=== PATIENT | female | born 1985 | race African-American/Black ===

== ENCOUNTER 2017-11-19 23:31 | Inpatient (IN) | payer MEDICARE, MEDICAID ==
[2017-11-20 01:52] LABS: HEMATOCRIT 36.8 % (36.0-47.0); HEMOGLOBIN 11.6 g/dl (12.0-16.0); MEAN CORPUSCULAR HGB CONC 31.5 g/dl (32.0-36.5); MEAN CORPUSCULAR VOLUME 79.3 fl (80.0-96.0); PLATELET COUNT, AUTOMATED 360 10^3/uL (150-450); RED BLOOD COUNT 4.64 10^6/uL (4.00-5.40); RED CELL DISTRIBUTION WIDTH 15.3 % (11.5-14.5); WHITE BLOOD COUNT 13.7 10^3/uL (4.0-10.0)
[2017-11-20 02:16] LABS: CONTROL LINE HCG INT CTR LINE PRESENT; HCG, SERUM QUALITATIVE NEGATIVE (NEGATIVE)
[2017-11-20 02:28] LABS: ALBUMIN 3.6 GM/DL (3.2-5.2); ALBUMIN/GLOBULIN RATIO 0.86 (1.00-1.93); ALKALINE PHOSPHATASE 82 U/L (45-117); ALT/SGPT 20 U/L (12-78); AMPHETAMINES LEVEL URINE NEGATIVE (NEGATIVE); ANION GAP 10 MEQ/L (8-16); AST/SGOT 16 U/L (7-37); BARBITURATES URINE NEGATIVE (NEGATIVE); BENZODIAZEPINES URINE NEGATIVE (NEGATIVE); BILIRUBIN,DIRECT 0.2 MG/DL (0.0-0.2); BILIRUBIN,TOTAL 0.4 MG/DL (0.2-1.0); BLOOD UREA NITROGEN 8 MG/DL (7-18); CALCIUM LEVEL 8.6 MG/DL (8.5-10.1); CANNABINOIDS URINE NEGATIVE (NEGATIVE); CARBON DIOXIDE LEVEL 25 MEQ/L (21-32); CHLORIDE LEVEL 105 MEQ/L (98-107); COCAINE METABOLITE URINE NEGATIVE (NEGATIVE); CPK CREATINE PHOSPHOKINASE 181 U/L (26-192); CREATININE FOR GFR 0.81 MG/DL (0.55-1.02); ETHYL ALCOHOL (ETHANOL) < 0.003 % (0.000-0.010); GLOMERULAR FILTRATION RATE > 60.0 (>60); GLUCOSE, FASTING 105 MG/DL (70-105); METHADONE URINE NEGATIVE (NEGATIVE); OPIATES URINE NEGATIVE (NEGATIVE); PHENCYCLIDINE URINE NEGATIVE (NEGATIVE); POTASSIUM SERUM 3.4 MEQ/L (3.5-5.1); SALICYLATE LEVEL 1.8 MG/DL (5.0-30.0); SODIUM LEVEL 140 MEQ/L (136-145); TOTAL PROTEIN 7.8 GM/DL (6.4-8.2)
[2017-11-20] MEDS: ACETAMINOPHEN 325 MG TAB PO (02:30)
[2017-11-20 02:33] LABS: ACETAMINOPHEN LEVEL < 2.0 UG/ML (10.0-30.0)
[2017-11-20] MEDS ORDERED: ACETAMINOPHEN TAB 650MG DOSE (2X325MG) PO (03:00)
[2017-11-20] MEDS ORDERED: MOM 30ML SUSPENSION UDC PO (03:00)
[2017-11-20] MEDS ORDERED: MAALOX 30 ML SUSP *UDC PO (03:00)
[2017-11-20] MEDS: OXcarbazepine 150 MG TAB PO ×2 (09:00→21:00)
[2017-11-20] MEDS: ZIPRASIDONE 20MG CAPSULE (GEODON) PO (17:49)
[2017-11-20] MEDS: PRAZOSIN 1 MG CAP PO (21:00)
[2017-11-21 07:49] LABS: BASO % 0.4 % (0.0-1.0); EOS # 0.1 10^3/uL (0.0-0.50); EOS % 0.7 % (0.0-3.0); HEMATOCRIT 35.2 % (36.0-47.0); IMMATURE GRANULOCYTE % 0.4 % (0-0); LYMPH # 2.1 10^3/uL (1.5-4.5); LYMPH % 19.2 % (24.0-44.0); MEAN CORPUSCULAR HEMOGLOBIN 24.7 pg (27.0-33.0); MEAN CORPUSCULAR HGB CONC 31.3 g/dl (32.0-36.5); MEAN CORPUSCULAR VOLUME 79.1 fl (80.0-96.0); MONO # 0.7 10^3/uL (0.0-0.8); MONO % 6.1 % (0.0-5.0); NEUTROPHILS # 7.9 10^3/uL (1.8-7.7); NEUTROPHILS % 73.2 % (36.0-66.0); PLATELET COUNT, AUTOMATED 382 10^3/uL (150-450); RED BLOOD COUNT 4.45 10^6/uL (4.00-5.40); RED CELL DISTRIBUTION WIDTH 15.2 % (11.5-14.5); WHITE BLOOD COUNT 10.8 10^3/uL (4.0-10.0)
[2017-11-21 08:12] LABS: ANION GAP 8 MEQ/L (8-16); BLOOD UREA NITROGEN 19 MG/DL (7-18); CALCIUM LEVEL 8.6 MG/DL (8.5-10.1); CARBON DIOXIDE LEVEL 27 MEQ/L (21-32); CHLORIDE LEVEL 110 MEQ/L (98-107); FERRITIN 51 NG/ML (8-252); GLOMERULAR FILTRATION RATE > 60.0 (>60); GLUCOSE, FASTING 91 MG/DL (70-105); IRON (FE) 32 UG/DL (50-170); PERCENT SATURATION 10.5 % (13.2-45.0); SODIUM LEVEL 145 MEQ/L (136-145); TOTAL IRON BINDING CAPACITY 304 UG/DL (250-450)
[2017-11-21] MEDS: OXcarbazepine 150 MG TAB PO ×2 (09:56→20:50)
[2017-11-21] MEDS: ZIPRASIDONE 20MG CAPSULE (GEODON) PO (17:54)
[2017-11-21] MEDS: PRAZOSIN 1 MG CAP PO (20:50)
[2017-11-22] MEDS: OXcarbazepine 150 MG TAB PO ×2 (08:51→20:57)
[2017-11-22] MEDS: VITAMIN B COMPLEX/VIT C CAP PO (09:00)
[2017-11-22] MEDS ORDERED: LORazepam 2 MG/ML VIAL (J2060) As Ordered (13:17)
[2017-11-22] MEDS ORDERED: HALOPERIDOL 5 MG/ML VIAL (J1630) As Ordered (13:17)
[2017-11-22] MEDS ORDERED: diphenhydrAMINE INJ 50MG/ML VIAL (J1200) As Ordered (13:18)
[2017-11-22] MEDS: LORazepam 2 MG/ML VIAL (J2060) IM (13:26)
[2017-11-22] MEDS: diphenhydrAMINE INJ 50MG/ML VIAL (J1200) IM (13:27)
[2017-11-22] MEDS: HALOPERIDOL 5 MG/ML VIAL (J1630) IM (13:27)
[2017-11-22] MEDS: HALOPERIDOL 5 MG TAB PO (14:25)
[2017-11-22] MEDS: ZIPRASIDONE 20MG CAPSULE (GEODON) PO (18:00)
[2017-11-22] MEDS ORDERED: LORazepam 0.5 MG TAB PO (18:00)
[2017-11-22] MEDS ORDERED: OLANZapine ORAL DISINTEGRATING TAB 5MG PO (18:00)
[2017-11-22] MEDS: PRAZOSIN 1 MG CAP PO (20:57)
[2017-11-22] MEDS ORDERED: METHADONE 10 MG TAB (S0109) PO (21:00)
[2017-11-23] MEDS: OXcarbazepine 150 MG TAB PO ×2 (08:14→21:02)
[2017-11-23] MEDS: VITAMIN B COMPLEX/VIT C CAP PO (08:14)
[2017-11-23] MEDS: HALOPERIDOL 2 MG TAB PO ×2 (12:27→21:02)
[2017-11-23] MEDS: ZIPRASIDONE 20MG CAPSULE (GEODON) PO (17:19)
[2017-11-23] MEDS: PRAZOSIN 1 MG CAP PO (21:03)
[2017-11-23] MEDS: traZODone 50 MG TAB PO (21:03)
[2017-11-24] MEDS: HALOPERIDOL 2 MG TAB PO (09:13)
[2017-11-24] MEDS: VITAMIN B COMPLEX/VIT C CAP PO (09:13)
[2017-11-24] MEDS: OXcarbazepine 150 MG TAB PO ×2 (09:13→21:23)
[2017-11-24] MEDS: ZIPRASIDONE 20MG CAPSULE (GEODON) PO (17:59)
[2017-11-24] MEDS: HALOPERIDOL 5 MG TAB PO (21:23)
[2017-11-24] MEDS: traZODone 50 MG TAB PO (21:23)
[2017-11-24] MEDS: PRAZOSIN 1 MG CAP PO (21:23)
[2017-11-25] MEDS: OXcarbazepine 150 MG TAB PO ×2 (09:22→21:45)
[2017-11-25] MEDS: VITAMIN B COMPLEX/VIT C CAP PO (09:22)
[2017-11-25] MEDS: HALOPERIDOL 5 MG TAB PO ×2 (09:22→21:45)
[2017-11-25] MEDS: ZIPRASIDONE 20MG CAPSULE (GEODON) PO (18:10)
[2017-11-25] MEDS: PRAZOSIN 1 MG CAP PO (21:46)
[2017-11-25] MEDS: traZODone 50 MG TAB PO (21:46)
[2017-11-26] MEDS: OXcarbazepine 150 MG TAB PO ×2 (09:33→22:31)
[2017-11-26] MEDS: VITAMIN B COMPLEX/VIT C CAP PO (09:34)
[2017-11-26] MEDS: HALOPERIDOL 5 MG TAB PO ×2 (09:34→22:31)
[2017-11-26] MEDS: ZIPRASIDONE 20MG CAPSULE (GEODON) PO (17:46)
[2017-11-26] MEDS: PRAZOSIN 1 MG CAP PO (22:30)
[2017-11-27] MEDS: VITAMIN B COMPLEX/VIT C CAP PO (08:52)
[2017-11-27] MEDS: HALOPERIDOL 5 MG TAB PO (08:52)
[2017-11-27] MEDS: OXcarbazepine 150 MG TAB PO ×2 (08:53→22:12)
[2017-11-27] MEDS: HALOPERIDOL DECANOATE 100 MG/ML VIAL (J1631) IM (10:33)
[2017-11-27] MEDS ORDERED: HALOPERIDOL DECANOATE 100 MG/ML VIAL (J1631) IM (16:00)
[2017-11-27] MEDS: HALOPERIDOL 2 MG TAB PO (22:12)
[2017-11-27] MEDS: PRAZOSIN 1 MG CAP PO (22:12)
[2017-11-28] MEDS: LORazepam 2 MG TAB PO (01:47)
[2017-11-28] MEDS: OLANZapine ORAL DISINTEGRATING TAB 5MG SL (01:47)
[2017-11-28] MEDS: OXcarbazepine 150 MG TAB PO ×2 (09:51→22:39)
[2017-11-28] MEDS: HALOPERIDOL 2 MG TAB PO ×2 (09:51→22:39)
[2017-11-28] MEDS: VITAMIN B COMPLEX/VIT C CAP PO (09:51)
[2017-11-28 20:05] LABS: BASO % 0.3 % (0.0-1.0); EOS # 0.1 10^3/uL (0.0-0.50); EOS % 1.2 % (0.0-3.0); HEMATOCRIT 33.2 % (36.0-47.0); HEMOGLOBIN 10.4 g/dl (12.0-16.0); IMMATURE GRANULOCYTE % 0.2 % (0-0); LYMPH # 2.8 10^3/uL (1.5-4.5); LYMPH % 29.9 % (24.0-44.0); MEAN CORPUSCULAR HEMOGLOBIN 25.1 pg (27.0-33.0); MEAN CORPUSCULAR HGB CONC 31.3 g/dl (32.0-36.5); MONO # 0.5 10^3/uL (0.0-0.8); MONO % 5.6 % (0.0-5.0); NEUTROPHILS # 5.8 10^3/uL (1.8-7.7); NEUTROPHILS % 62.8 % (36.0-66.0); PLATELET COUNT, AUTOMATED 318 10^3/uL (150-450); RED BLOOD COUNT 4.15 10^6/uL (4.00-5.40); RED CELL DISTRIBUTION WIDTH 15.5 % (11.5-14.5); WHITE BLOOD COUNT 9.3 10^3/uL (4.0-10.0)
[2017-11-28] MEDS: traZODone 50 MG TAB PO (22:39)
[2017-11-28] MEDS: PRAZOSIN 1 MG CAP PO (22:40)
[2017-11-29] MEDS: VITAMIN B COMPLEX/VIT C CAP PO (09:25)
[2017-11-29] MEDS: HALOPERIDOL 2 MG TAB PO (09:25)
[2017-11-29] MEDS: OXcarbazepine 150 MG TAB PO (09:25)
== END 2017-11-29 11:30 | disposition home or self-care (01) | DRG 885 ==
LOC: M PSY 11-22 14:48 → M ED 23:31 → M ED INP 11-20 03:32 → M PSY 11-20 04:22
DX: F25.0 Schizoaffective disorder, bipolar type (principal)

== ENCOUNTER 2018-04-26 21:23 | Emergency (ER) | payer MEDICARE, MEDICAID ==
[2018-04-27 00:10] LABS: HCG, SERUM QUANTITATIVE 55412 MIU/ML
[2018-04-27 00:52] LABS: KETONE, URINE AUTO RFX NEGATIVE (NEGATIVE); LEUKOCYTE ESTERASE UR AUTO RFX NEGATIVE (NEGATIVE); MUCUS, URINE RFX SMALL (NEGATIVE); NITRITE, URINE AUTO RFX NEGATIVE (NEGATIVE); RBC, URINE AUTO RFX 4 /HPF (0-3); SPECIFIC GRAVITY UR AUTO RFX 1.012 (1.002-1.035); SQUAM EPITHELIAL CELL UR AURFX 0 /HPF (0-6); WBC, URINE AUTO RFX 0 /HPF (0-3)
== END 2018-04-27 01:18 | disposition home or self-care (01) ==
LOC: M ED 21:23
DX: Z32.01 Encounter for pregnancy test, result positive (principal); O99.340 Other mental disorders complicating pregnancy, unspecified trimester; O99.330 Smoking (tobacco) complicating pregnancy, unspecified trimester; Z79.899 Other long term (current) drug therapy
CPT/HCPCS: 84702

== ENCOUNTER → 2018-05-08 | Outpatient (REF) | payer MEDICARE, MEDICAID ==
[2018-05-08 19:46] LABS: HEMOGLOBIN 10.9 g/dl (12.0-15.5); MEAN CORPUSCULAR HEMOGLOBIN 25.4 pg (27.0-33.0); MEAN CORPUSCULAR HGB CONC 32.1 g/dl (32.0-36.5); MEAN CORPUSCULAR VOLUME 79.3 fl (80.0-96.0); PLATELET COUNT, AUTOMATED 317 10^3/uL (150-450); RED BLOOD COUNT 4.29 10^6/uL (4.00-5.40); RED CELL DISTRIBUTION WIDTH 16.4 % (11.5-14.5)
[2018-05-08 19:55] LABS: HCG, SERUM QUANTITATIVE 42516 MIU/ML
[2018-05-10 11:52] LABS: RUBELLA IgG QUALITATIVE IMMUNE (IMMUNE)
[2018-05-10 12:02] LABS: HBsAg Prenatal NEGATIVE (NEGATIVE)
[2018-05-10 12:24] LABS: HEPATITIS C VIRUS ABY INDEX < 0.0 INDEX (<0.8)
[2018-05-10 12:24] LABS: HIV 1&2 SCREEN CENTAUR NEGATIVE (NEGATIVE)
== END ==
LOC: M LAB REF 16:40
DX: O36.80X0 Pregnancy with inconclusive fetal viability, not applicable or unspecified (principal)
CPT/HCPCS: 86762

== ENCOUNTER 2018-08-02 22:00 | Inpatient (IN) | payer MEDICARE, MEDICAID ==
[2018-08-02] MEDS ORDERED: BETAMETHASONE SOLUSPAN 6MG/ML INJ 5ML (J0702) IM (22:15)
[2018-08-02] MEDS ORDERED: MAGNESIUM *L&D* 4 GM/100 ML BAG (40MG/ML) (J3475) As Ordered (22:23)
[2018-08-02] MEDS ORDERED: MAGNESIUM SULFATE 4% INJ 20GM/500ML (40MG/ML) (J3475) As Ordered (22:23)
[2018-08-02] MEDS: MAG Sulf (L&D) 4 GM/100 ML 4 GM in APPROPRIATE DILUENT 1 EA IV (22:30)
[2018-08-02] MEDS ORDERED: MAG Sulf (OBGYN) 20GM/500ML 20,000 MG in APPROPRIATE DILUENT 1 EA IV (22:34)
[2018-08-02] MEDS ORDERED: AMPICILLIN 2 GM VIAL As Ordered (22:34)
[2018-08-02] MEDS ORDERED: AMPICILLIN SOD 2 GM in D5W MINI-BAG PLUS 100 ML IV (22:45)
[2018-08-02 22:54] LABS: HEMATOCRIT 31.4 % (36.0-47.0); HEMOGLOBIN 10.3 g/dl (12.0-15.5); MEAN CORPUSCULAR HGB CONC 32.8 g/dl (32.0-36.5); MEAN CORPUSCULAR VOLUME 82.4 fl (80.0-96.0); PLATELET COUNT, AUTOMATED 267 10^3/uL (150-450); RED BLOOD COUNT 3.81 10^6/uL (4.00-5.40); RED CELL DISTRIBUTION WIDTH 15.9 % (11.5-14.5); WHITE BLOOD COUNT 22.1 10^3/uL (4.0-10.0)
[2018-08-02 23:45] LABS: AMPHETAMINES URINE REFLEX NEGATIVE (NEGATIVE); BARBITURATES URINE REFLEX NEGATIVE (NEGATIVE); BENZODIAZEPINES URINE REFLEX NEGATIVE (NEGATIVE); CANNABINOIDS URINE REFLEX NEGATIVE (NEGATIVE); COCAINE METABOLITE URINE REFLE NEGATIVE (NEGATIVE); METHADONE URINE REFLEX NEGATIVE (NEGATIVE); OPIATES URINE REFLEX NEGATIVE (NEGATIVE); PHENCYCLIDINE URINE REFLEX NEGATIVE (NEGATIVE)
[2018-08-02] MEDS ORDERED: OXYTOCIN 30 UNITS IN 0.9% NaCl 500ML IV BAG (J2590) As Ordered (23:46)
[2018-08-03] MEDS: OXYTOCIN DRIP 30 UNITS in APPROPRIATE DILUENT 1 EA IV (00:19)
[2018-08-03] MEDS ORDERED: METHYLERGONOVINE MALEATE 0.2 MG TAB PO (00:30)
[2018-08-03] MEDS ORDERED: MOM 30ML SUSPENSION UDC PO (00:30)
[2018-08-03] MEDS ORDERED: RHOGAM 300 MCG (1500 IU) INJ (J2790) IM (00:30)
[2018-08-03] MEDS ORDERED: PROMETHAZINE 25 MG TAB PO (00:30)
[2018-08-03] MEDS ORDERED: DIBUCAINE 1% OINTMENT 30GM TOP (00:30)
[2018-08-03] MEDS ORDERED: MEASLES,MUMPS,RUBELLA VACCINE INJ (MMR-II) (90707) SC (00:30)
[2018-08-03] MEDS ORDERED: DOCUSATE SODIUM 100 MG CAP PO (00:30)
[2018-08-03] MEDS ORDERED: ANUSOL HC CREAM 30GM TOP (00:30)
[2018-08-03] MEDS ORDERED: ACETAMINOPHEN 500 MG TAB PO (00:30)
[2018-08-03 01:18] LABS: CHLAMYDIA DNA AMPLIFICATION NEGATIVE (NEGATIVE); GC DNA AMPLIFICATION NEGATIVE (NEGATIVE)
[2018-08-03] MEDS: AMPICILLIN SOD/SULBACTAM SOD 3 GM in D5W MINI-BAG PLUS 100 ML IV (01:58)
[2018-08-03] MEDS: AZITHROMYCIN 250 MG TAB PO (01:59)
[2018-08-03] MEDS: IBUPROFEN 800 MG TAB PO (02:16)
[2018-08-03] MEDS ORDERED: PRENATAL VITAMINS CHEWABLE TABLET PO (09:00)
== END 2018-08-03 05:30 | disposition home or self-care (01) | DRG 775 ==
LOC: M LDO 22:00 → M LDI 22:01
PROVIDERS: Advanced Practice Midwife
PROC: 10E0XZZ Delivery of Products of Conception, External Approach (ICD-10-PCS; principal; 2018-08-02)
DX: O60.13X0 Preterm labor second trimester with preterm delivery third trimester, not applicable or unspecified (principal); O41.1220 Chorioamnionitis, second trimester, not applicable or unspecified; Z37.0 Single live birth; Z3A.23 23 weeks gestation of pregnancy; E66.9 Obesity, unspecified; F25.9 Schizoaffective disorder, unspecified; O99.344 Other mental disorders complicating childbirth; O99.214 Obesity complicating childbirth; F17.210 Nicotine dependence, cigarettes, uncomplicated; O99.334 Smoking (tobacco) complicating childbirth; O42.012 Preterm premature rupture of membranes, onset of labor within 24 hours of rupture, second trimester; O32.8XX0 Maternal care for other malpresentation of fetus, not applicable or unspecified

== ENCOUNTER 2018-10-06 03:37 | Emergency (ER) | payer MEDICARE, MEDICAID | END 2018-10-06 04:51 | disposition home or self-care (01) | LOC: M ED 03:37 | DX: F22 Delusional disorders (principal); F31.9 Bipolar disorder, unspecified; Z79.899 Other long term (current) drug therapy; F17.210 Nicotine dependence, cigarettes, uncomplicated | CPT/HCPCS: 99284 ==

== ENCOUNTER 2019-02-02 17:45 | Emergency (ER) | payer MEDICARE, MEDICAID ==
[~2019-02-02] VITALS: Ht 157.5 cm; Wt 113.6 kg
[2019-02-02 17:45] VITALS: BP 134/83
[~2019-02-02 17:45] MED LIST: HALD100I2 IM; HALO1TAB19 PO; MINI1CAP PO; OXCA150T21 PO; PATIENT COMMENT; RISP1TAB3
== END 2019-02-02 19:16 | disposition home or self-care (01) ==
LOC: M ED 17:45
DX: G89.4 Chronic pain syndrome (principal); F25.9 Schizoaffective disorder, unspecified; F17.210 Nicotine dependence, cigarettes, uncomplicated; Z79.899 Other long term (current) drug therapy

== ENCOUNTER 2019-02-18 15:31 | Inpatient (IN) | payer MEDICARE, MEDICAID ==
[~2019-02-18] VITALS: Ht 157.5 cm; Wt 120.0 kg
[2019-02-18 16:28] LABS: HEMATOCRIT 37.2 % (36.0-47.0); HEMOGLOBIN 11.7 g/dl (12.0-15.5); MEAN CORPUSCULAR HEMOGLOBIN 25.5 pg (27.0-33.0); MEAN CORPUSCULAR HGB CONC 31.5 g/dl (32.0-36.5); PLATELET COUNT, AUTOMATED 321 10^3/uL (150-450); RED BLOOD COUNT 4.59 10^6/uL (4.00-5.40); WHITE BLOOD COUNT 7.8 10^3/uL (4.0-10.0)
[2019-02-18 16:53] LABS: AMPHETAMINES LEVEL URINE NEGATIVE (NEGATIVE); BARBITURATES URINE NEGATIVE (NEGATIVE); BENZODIAZEPINES URINE NEGATIVE (NEGATIVE); CANNABINOIDS URINE NEGATIVE (NEGATIVE); COCAINE METABOLITE URINE NEGATIVE (NEGATIVE); METHADONE URINE NEGATIVE (NEGATIVE); OPIATES URINE NEGATIVE (NEGATIVE); PHENCYCLIDINE URINE NEGATIVE (NEGATIVE)
[2019-02-18 17:00] LABS: HCG, SERUM QUALITATIVE NEGATIVE (NEGATIVE)
[2019-02-18 17:08] LABS: ACETAMINOPHEN LEVEL < 2.0 UG/ML (10.0-30.0); ALBUMIN 3.4 GM/DL (3.2-5.2); ALT/SGPT 23 U/L (12-78); BILIRUBIN,DIRECT < 0.1 MG/DL (0.0-0.2); BILIRUBIN,TOTAL 0.1 MG/DL (0.2-1.0); BLOOD UREA NITROGEN 9 MG/DL (7-18); CARBON DIOXIDE LEVEL 26 MEQ/L (21-32); CHLORIDE LEVEL 106 MEQ/L (98-107); ETHYL ALCOHOL (ETHANOL) < 0.003 % (0.000-0.010); GLOMERULAR FILTRATION RATE > 60.0 (>60); GLUCOSE, FASTING 194 MG/DL (70-100); POTASSIUM SERUM 3.7 MEQ/L (3.5-5.1); SALICYLATE LEVEL < 1.7 MG/DL (5.0-30.0); SODIUM LEVEL 140 MEQ/L (136-145)
[2019-02-18] MEDS ORDERED: MAALOX 30 ML SUSP *UDC PO PRN (18:45)
[2019-02-18] MEDS ORDERED: MOM 30ML SUSPENSION UDC PO PRN (18:45)
[2019-02-18] MEDS ORDERED: ACETAMINOPHEN TAB 650MG DOSE (2X325MG) PO PRN (18:45)
[2019-02-18] MEDS ORDERED: OLANZapine ORAL DISINTEGRATING TAB 5MG PO PRN (18:45)
[2019-02-18] MEDS ORDERED: RISP1TAB3 PO (18:48)
[2019-02-18 19:49] VITALS: BP 143/94
[2019-02-18] MEDS: traZODone 50 MG TAB PO PRN (20:48)
[2019-02-19 06:43] VITALS: BP 127/61
--- NOTE | 2019-02-19 11:32 | HPEPDOC ---
[facility] Medical History & Physical Date of Admission Feb 18, 2019 History and Physical PCP: None ATTENDING: Dr. Alycia Starr HPI: 33yoF admitted to [facility] for schizoaffective disorder, being medically examined today. No acute medical complaints today. Denies any fevers, chills, weakness, fatigue, CARVER, CP, SOB, cough, palpitations, abdominal pain, N/V/D or changes in bowel or bladder habits. PMHx: Schizoaffective disorder bipolar disorder anxiety depression H/O medication non compliance obesity. BMI 48.4 PSHX: left leg surgery SOCHX: Resides in: [facility] Marital Status: single Kids: none Employment: unemployed Tobacco use: 6 per day ETOH: denies Illicit Drugs: Denies IV Drug Use: Denies Tattoos done unprofessionally: Denies FAMHX: Mother: Alive, well Father: , homicide Siblings: 2 brothers Alive, well Children: none Unexpected deaths due to medical reasons: None. ROS: As noted in HPI, otherwise 11pt ROS of systems reviewed and remarkable only for LMP 01/10/19. PE: GEN: 33yoF, appears stated age. Well-nourished, well developed. No acute distress. Alert and oriented x 3. Avoids eye contact, short responses. HEENT: Normocephalic, atraumatic. Pupils are equal, round, and reactive to light. Extraocular movements are intact. No nystagmus appreciated. Sclera are nonicteric. Conjunctiva without injection. Nose midline. Nasal turbinates without bogginess. EACs both patent BL. TMs both visualized and foote with good cone of light, no bulging or erythema. No facial asymmetry. Moist mucous membranes. Dentition fair. Pharynx pink and moist, no cobblestoning. Neck supple, trachea midline. No lymphadenopathy or thyromegaly appreciated. CHEST: Regular rate and rhythm, +S1, +S2 LUNGS: Clear to auscultation bilaterally. No wheezes, rales, or rhonchi. Breathing appears symmetric and easy. Patient is speaking in full sentences. No accessory muscle use. ABD: Round, soft, non-tender, non-distended. +Bowel sounds throughout. No rebound or guarding. No costovertebral angle tenderness. EXT: Pulses 2+ bilaterally dorsalis pedis and radial. No lower extremity edema appreciated. SKIN: [place], dry, warm. Capillary refill <2sec. No rashes. NEURO: Alert and oriented x 3. Cranial nerves III-XII are intact. No focal deficits appreciated. EKG: pending A&P: 33yoF admitted to [facility] for schizoaffective disorder 1. Psych. Plan per Psychiatry. Obtain baseline EKG to assure the safety of psyc hiatric medications as they can prolong the QT interval. 2. Nicotine dependence. Patch available. 3. Obesity. Complicates care. TSH WNL. Add A1c to labs. 4. Follow up. No Primary Care Provider. Will attempt to establish PCP on discharge. 5. Staff member Maya MEZA present throughout exam. Vital Signs Vital Signs Date Time Temp Pulse Resp B/P (MAP) Pulse Ox O2 Delivery O2 Flow Rate FiO2 02/19/19 06:43 97.9 73 14 127/61 (83) 02/18/19 15:57 100 Room Air Laboratory Data Labs 24H Laboratory Tests 2 02/18/19 16:15: Nucleated Red Blood Cells % (auto) 0.0, Anion Gap 8, Glomerular Filtration Rate > 60.0, Calcium Level 8.0L, Aspartate Amino Transf (AST/SGOT) 17, Alanine Aminotransferase (ALT/SGPT) 23, Alkaline Phosphatase 108, Total Bilirubin 0.1L, Direct Bilirubin < 0.1, Total Protein 7.0, Albumin 3.4, Albumin/Globulin Ratio 0.94L, Thyroid Stimulating Hormone (TSH) 1.960, Human Chorionic Gonadotropin, Qual NEGATIVE, Salicylates Level < 1.7L, Urine Amphetamines Screen NEGATIVE, Urine Benzodiazepines Screen NEGATIVE, Urine Opiates Screen NEGATIVE, Urine Methadone Screen NEGATIVE, Acetaminophen Level < 2.0L, Urine Barbiturates Screen NEGATIVE, Urine Phencyclidine Screen NEGATIVE, Urine Cocaine Metabolite Screen NEGATIVE, Urine Cannabinoids Screen NEGATIVE, Ethyl Alcohol Level < 0.003 CBC/BMP Laboratory Tests 02/18/19 16:15 Red Blood Count 4.59, Mean Corpuscular Volume 81.0, Mean Corpuscular Hemoglobin 25.5 L, Mean Corpuscular Hemoglobin Concent 31.5 L, Red Cell Distribution Width 15.6 H Home Medications Scheduled (Risperidone) 1 Mg Tab, 1 MG PO QHS HAS NOT HAD FILLED SINCE DECEMBER ACCORDING TO PHARMACY - RX FOR BID, PATIENT ONLY TAKING QHS Allergies Coded Allergies: No Known Allergies (Unverified , 11/19/17) Angelica Kim Feb 19, 2019 11:32
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
[2019-02-19] MEDS ORDERED: risperiDONE 1 MG TAB PO ONE (12:00)
[2019-02-19 13:59] LABS: HEMOGLOBIN A1c 7.4 %
[2019-02-19 18:00] VITALS: BP 132/84
[2019-02-19] MEDS: traZODone 50 MG TAB PO PRN (20:08)
[2019-02-19] MEDS ORDERED: risperiDONE 2 MG TAB PO SCH (21:00)
--- NOTE | 2019-02-19 21:39 | ECGEPIP ---
Stationary ECG Study [facility] Test Date: 2019-02-19 Pat Name: YESY TAVARES Department: Room: [place] [address] Gender: F Investigative Shopper: PAYAL : 1985 Requested By: Angelica Kim Order Number: [id number] Reading MD: Queenie De León Measurements Intervals [place] Rate: 70 P: 14 RI: 145 QRS: 10 QRSD: 94 T: 5 QT: 388 QTc: 420 Interpretive Statements SINUS RHYTHM NO PRIOR Electronically Signed On 02-19-2019 21:38:56 EDT by Queenie De León
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
[2019-02-20] MEDS ORDERED: RISP2TAB32 PO (08:42)
[2019-02-20] MEDS ORDERED: RISP1TAB42 PO (08:42)
[2019-02-20] MEDS ORDERED: risperiDONE 1 MG TAB PO SCH (09:00)
== END 2019-02-20 11:15 | disposition home or self-care (01) | DRG 885 ==
LOC: M ED 15:31 → M ED INP 18:34 → M PSY 19:45
PROVIDERS: ADMIT Psychiatry & Neurology Psychiatry; ATTEND Psychiatry & Neurology Psychiatry
DX: F25.9 Schizoaffective disorder, unspecified (principal); Z68.41 Body mass index [BMI] 40.0-44.9, adult; Z91.14 Patient's other noncompliance with medication regimen; Z79.899 Other long term (current) drug therapy; E66.9 Obesity, unspecified; F17.200 Nicotine dependence, unspecified, uncomplicated

== ENCOUNTER 2019-03-19 22:02 | Emergency (ER) | payer MEDICARE, MEDICAID ==
[~2019-03-19 22:02] MED LIST changes: +RISP1TAB3 PO; +RISP1TAB42 PO; +RISP2TAB32 PO
== END 2019-03-20 00:02 | disposition home or self-care (01) ==
LOC: M ED 22:02
DX: F43.20 Adjustment disorder, unspecified (principal); F31.9 Bipolar disorder, unspecified; F25.9 Schizoaffective disorder, unspecified; F41.9 Anxiety disorder, unspecified; F32.9 Major depressive disorder, single episode, unspecified; Z72.0 Tobacco use